=== PATIENT | male | born 1960 | race African-American/Black ===

== ENCOUNTER 2024-08-21 18:36 | Inpatient (IN) | payer MEDICAID, OTHER ==
[~2024-08-21] VITALS: Ht 167.6 cm; Wt 75.7 kg
[2024-08-21] MEDS ORDERED: HYDR-3980 PO (18:56)
[2024-08-21] MEDS ORDERED: AMLO10TA59 PO (18:56)
[2024-08-21] MEDS ORDERED: HYDROCODONE/APAP 10-325 MG TABLET ONE (19:18)
[2024-08-21] MEDS: HYDROCODONE/APAP 10-325 MG TABLET PO ONE (19:23)
[2024-08-21 19:47] LABS: BASOPHILS % (AUTO) 0.6 % (0.0-2.0); EOSINOPHILS # (AUTO) 0.1 K/uL (0.0-0.7); EOSINOPHILS % (AUTO) 2.6 % (0.0-7.0); HEMATOCRIT 39.5 % (36.7-47.1); HEMOGLOBIN 13.4 g/dL (12.5-16.3); LYMPHOCYTES # (AUTO) 1.7 K/uL (0.8-4.8); LYMPHOCYTES % (AUTO) 31.1 % (20.5-51.5); MEAN CORPUSCULAR HEMOGLOBIN 33.1 uug (23.8-33.4); MEAN CORPUSCULAR HGB CONC 34 g/dL (32.5-36.3); MEAN CORPUSCULAR VOLUME 97.6 fL (73.0-96.2); MONOCYTES # (AUTO) 0.7 K/uL (0.1-1.30); MONOCYTES % (AUTO) 12.4 % (0.0-11.0); NEUTROPHILS # (AUTO) 2.9 K/uL (1.8-8.9); NEUTROPHILS % (AUTO) 53.3 % (38.5-71.5); PLATELET COUNT (AUTO) 272 K/uL (152-348); RED BLOOD CELL COUNT(AUTO) 4.05 MIL/uL (4.06-5.63); RED CELL DISTRIBUTION WIDTH 14.4 % (12.1-16.2); WHITE BLOOD COUNT (AUTO) 5.4 K/uL (3.6-10.2)
[2024-08-21 19:55] LABS: DIFFERENTIAL COMMENT 1
[2024-08-21 19:56] LABS: CALCIUM 8.7 mg/dL (8.5-10.1); CARBON DIOXIDE 28 mmol/L (21-32); CHLORIDE 110 mmol/L (98-107); CREATININE 1.3 mg/dL (0.6-1.3); GLUCOSE 154 mg/dL (74-106); POTASSIUM 4.6 mmol/L (3.5-5.1); SODIUM SERUM 147 mmol/L (136-145); UREA NITROGEN, BLOOD 21 mg/dL (7-18)
[2024-08-21 20:02] LABS: ALANINE AMINOTRANSFERASE 15 U/L (16-63); ALBUMIN 3.3 g/dL (3.4-5.0); ALKALINE PHOSPHATASE 122 U/L (50-136); ASPARTATE AMINOTRANSFERASE 14 U/L (15-37); BILIRUBIN,DIRECT 0.1 mg/dL (0.0-0.2); BILIRUBIN,TOTAL 0.3 mg/dL (0.2-1.0); TOTAL PROTEIN, SERUM 8.5 g/dL (6.4-8.2)
[2024-08-21 20:03] LABS: ACETAMINOPHEN < 2.0 ug/mL (10-30)
[2024-08-21 20:12] LABS: ETHANOL < 3 MG/DL (0-10)
[2024-08-21 22:50] VITALS: BP 120/85; TEMP 98.3; O2SAT 100
[2024-08-21] MEDS ORDERED: ACETAMINOPHEN 325 MG TABLET PO PRN (23:00)
[2024-08-21] MEDS ORDERED: CLONAZEPAM 0.5 MG TABLET PO PRN (23:00)
[2024-08-21] MEDS ORDERED: MAGNESIUM HYDROXIDE 30 ML LIQUID UDC PO PRN (23:00)
[2024-08-21] MEDS ORDERED: TEMAZEPAM 7.5 MG CAPSULE PO PRN (23:00)
[2024-08-21] MEDS ORDERED: CLONAZEPAM 1 MG TABLET PO PRN (23:00)
[2024-08-21] MEDS: BLOOD SUGAR DIAGNOSTIC 1 EACH STRIP VI ONE (23:10)
[2024-08-22] MEDS: MAG HYDROX/AL HYDROX/SIMETH 30 ML LIQUID UDC PO PRN (03:22)
[2024-08-22 08:16] VITALS: BP 119/85; TEMP 97.9; O2SAT 100
[2024-08-22] MEDS: NICOTINE 7 MG/24HR PATCH TD SCH (09:00)
[2024-08-22] MEDS: AMLODIPINE 10 MG TABLET PO SCH (09:27)
[2024-08-22] MEDS ORDERED: CLONAZEPAM 0.5 MG TABLET PO PRN (09:45)
[2024-08-22] MEDS: OLANZAPINE 5 MG TABLET PO SCH (11:29)
[2024-08-22] MEDS: HYDROCODONE/APAP 10-325 MG TABLET PO PRN (11:40)
[2024-08-22 16:16] VITALS: BP 111/62; TEMP 98.2; O2SAT 100
[2024-08-22 20:00] VITALS: BP 106/68; TEMP 97.6; O2SAT 99
[2024-08-22] MEDS ORDERED: TEMAZEPAM 7.5 MG CAPSULE PO SCH (21:00)
[2024-08-22] MEDS ORDERED: OLANZAPINE 5 MG TABLET PO SCH (21:00)
[2024-08-23 07:54] VITALS: BP 127/87; TEMP 98.2; O2SAT 99
[2024-08-23 16:00] VITALS: BP 90/59; TEMP 98.4; O2SAT 97
[2024-08-23 20:00] VITALS: BP 90/65; TEMP 97.8; O2SAT 96
[2024-08-24 08:14] VITALS: BP 125/83; TEMP 98.4; O2SAT 100
[2024-08-24 16:12] VITALS: BP 98/68; TEMP 97.6; O2SAT 100
[2024-08-25] MEDS: TEMAZEPAM 7.5 MG CAPSULE PO PRN (01:17)
[2024-08-25 08:17] VITALS: BP 122/81; TEMP 98.1; O2SAT 100
[2024-08-25 16:42] VITALS: BP 138/62; TEMP 98; O2SAT 100
[2024-08-25 20:13] VITALS: BP 136/71; TEMP 98.1; O2SAT 98
[2024-08-25] MEDS: OLANZAPINE 2.5 MG TABLET PO SCH (20:42)
[2024-08-26 08:14] VITALS: BP 101/64; TEMP 97.8; O2SAT 100
[2024-08-26] MEDS: OLANZAPINE 5 MG TABLET PO SCH (08:17)
[2024-08-26 09:29] LABS: CALCIUM 9.1 mg/dL (8.5-10.1); CREATININE 1.5 mg/dL (0.6-1.3); POTASSIUM 5.1 mmol/L (3.5-5.1)
[2024-08-26 16:14] VITALS: BP 96/66; TEMP 98.1; O2SAT 100
[2024-08-26 20:34] VITALS: BP 102/65; TEMP 98; O2SAT 100
[2024-08-27 07:46] VITALS: BP 116/88; TEMP 97.8; O2SAT 100
[2024-08-27 13:00] LABS: CALCIUM 8.9 mg/dL (8.5-10.1); CREATININE 1.3 mg/dL (0.6-1.3); POTASSIUM 4.7 mmol/L (3.5-5.1)
[2024-08-27 16:00] VITALS: BP 97/65; TEMP 97.6; O2SAT 97
[2024-08-27 20:02] VITALS: BP 100/61; TEMP 98.2; O2SAT 100
[2024-08-28 08:12] VITALS: BP 116/73; TEMP 98; O2SAT 99
[2024-08-28 16:14] VITALS: BP 106/80; TEMP 98.2; O2SAT 100
[2024-08-28 20:00] VITALS: BP 97/62; TEMP 98.4; O2SAT 98
[2024-08-29 08:00] VITALS: BP 117/73; TEMP 98.1; O2SAT 97
[2024-08-29 16:08] VITALS: BP 122/68; TEMP 98; O2SAT 96
[2024-08-29 20:10] VITALS: BP 122/68; TEMP 98.5; O2SAT 100
[2024-08-30 08:14] VITALS: BP 133/62; TEMP 98.5; O2SAT 100
[2024-08-30 16:14] VITALS: BP 93/59; TEMP 98; O2SAT 96
[2024-08-30 19:49] VITALS: BP 95/61; TEMP 97.8; O2SAT 98
[2024-08-30 21:39] VITALS: BP 111/62
[2024-08-31 08:12] VITALS: BP 148/80; TEMP 98.4; O2SAT 100
[2024-08-31 16:16] VITALS: BP 94/58; TEMP 97.8; O2SAT 100
[2024-08-31 20:00] VITALS: BP 90/51; TEMP 98.4; O2SAT 99
[2024-09-01 08:18] VITALS: BP 117/40; TEMP 97.8; O2SAT 98
[2024-09-01 08:31] VITALS: BP 128/80
== END 2024-09-01 16:30 | DRG 750 ==
LOC: ER 18:36 → GPS 22:40
PROVIDERS: ADMIT Psychiatry & Neurology Psychiatry
DX: F20.9 Schizophrenia, unspecified (principal); E87.0 Hyperosmolality and hypernatremia; E44.1 Mild protein-calorie malnutrition; R45.851 Suicidal ideations; E88.09 Other disorders of plasma-protein metabolism, not elsewhere classified; G89.4 Chronic pain syndrome; F12.10 Cannabis abuse, uncomplicated; F14.10 Cocaine abuse, uncomplicated; F15.10 Other stimulant abuse, uncomplicated; F32.9 Major depressive disorder, single episode, unspecified; G62.9 Polyneuropathy, unspecified; Z59.00 Homelessness unspecified
CPT/HCPCS: 36415; 85025; A9150; G0480